=== PATIENT | male | born 1955 | race Caucasian/White ===

== ENCOUNTER 2019-02-13 17:06 | Emergency (ER) | payer OTHER ==
[2019-02-13] MEDS ORDERED: Cephalexin 500 MG Cap ONE (17:45)
--- NOTE | 2019-02-13 18:00 | EDM.PDOC ---
ED HPI GENERAL MEDICAL PROBLEM - General Chief Complaint: General Stated Complaint: NOT FEELING WELL Time Seen by Provider: 02/13/19 17:16 Source of Information: Reports: Patient History Limitations: Reports: No Limitations - History of Present Illness INITIAL COMMENTS - FREE TEXT/NARRATIVE: This is a 63yo M with recent history of an ear infection. He was started on augmentin. He has no medication allergies and has taken amoxicillin in the past. He started to feel bloated and have very loose stools up to 4-5 times a day within a day of taking the new antibiotics. He denies fever, chills or other concerns. He denies history of bowel issues, no cardiac or pulmonary issues, no chest pain, no sob. He states he is overall healthy just feels not well with the loose stools as his only symptom. Onset: Gradual Duration: Day(s): Location: Reports: Abdomen Severity: Mild Improves with: Reports: None Worsens with: Reports: None Associated Symptoms: Reports: Loss of Appetite, Nausea/Vomiting - Related Data Allergies Allergy/AdvReac Type Severity Reaction Status Date / Time adhesive tape Allergy Other Verified 02/13/19 17:28 Home Meds: Home Meds Albuterol [Ventolin HFA] 1 puff .XX ASDIRECTED 02/13/19 [History] Lisinopril 10 mg PO DAILY 02/13/19 [History] atorvaSTATin [Lipitor] 40 mg PO BEDTIME 02/13/19 [History] ED ROS GENERAL - Review of Systems Review Of Systems: ROS reveals no pertinent complaints other than HPI. ED EXAM, GENERAL - Physical Exam Exam: See Below Exam Limited By: No Limitations General Appearance: Alert, WD/WN, No Apparent Distress Eye Exam: Bilateral Eye: EOMI, PERRL Ears: Normal External Exam Ear Exam: Bilateral Ear: Other (cerumen in both canals blocking TM) Nose: Normal Inspection Throat/Mouth: Normal Inspection, Normal Lips, Normal Oropharynx Head: Atraumatic, Normocephalic Neck: Normal Inspection, Supple, Non-Tender Respiratory/Chest: No Respiratory Distress, Lungs Clear, Normal Breath Sounds Cardiovascular: Normal Peripheral Pulses, Regular Rate, Rhythm, No Edema Peripheral Pulses: 2+: Dorsalis Pedis (L), Dorsalis Pedis (R) GI/Abdominal: Soft, Non-Tender, Abnormal Bowel Sounds (hyperactive all over), Other (gassy) Back Exam: Normal Inspection Extremities: Normal Inspection Neurological: Alert, Oriented, CN II-XII Intact Psychiatric: Normal Affect, Normal Mood Skin Exam: Warm, Dry, Intact Course - Vital Signs Last Recorded V/S: Last Vital Signs Temp 36.8 C 02/13/19 17:16 Pulse 84 02/13/19 17:16 Resp 16 02/13/19 17:16 BP 147/107 H 02/13/19 17:33 Pulse Ox 97 02/13/19 17:16 - Orders/Labs/Meds Labs: Laboratory Tests 02/13/19 02/13/19 Range/Units 17:30 17:30 WBC 8.8 (4.0-11.0) K/uL RBC 4.95 (4.50-6.50) M/uL Hgb 14.7 (13.0-18.0) g/dL Hct 44.0 (40.0-54.0) % MCV 89 (76-96) fL MCH 29.7 (27.0-32.0) pg MCHC 33.4 (31.0-35.0) g/dL RDW 14.5 (11.0-16.0) % Plt Count 225 (150-400) K/uL MPV 9.2 (6.0-10.0) fL Neut % (Auto) 76.3 H (45.0-70.0) % Lymph % (Auto) 14.0 L (20.0-40.0) % Payne % (Auto) 8.0 (3.0-10.0) % Eos % (Auto) 1.5 (1.0-5.0) % Baso % (Auto) 0.2 (0.0-0.5) % Neut # (Auto) 6.71 (2.00-7.50) K/uL Lymph # (Auto) 1.23 L (1.50-4.00) K/uL Payne # (Auto) 0.70 (0.20-0.80) K/uL Eos # (Auto) 0.13 (0.04-0.40) K/uL Baso # (Auto) 0.02 (0.02-0.10) K/uL Sodium 142 (136-145) mmol/L Potassium 3.9 (3.5-5.1) mmol/L Chloride 106 (98-107) mmol/L Carbon Dioxide 29.1 (21.0-32.0) mmol/L Anion Gap 10.8 (5.0-15.0) mmol/L BUN 15 (8-26) mg/dL Creatinine 1.07 (0.70-1.30) mg/dL Est Cr Clr Drug Dosing 76.55 mL/min Estimated GFR (MDRD) > 60 (>60) MLS/MIN BUN/Creatinine Ratio 14.0 (6-25) Glucose 112 H (74-100) mg/dL Calcium 8.8 (8.5-10.1) mg/dL Departure - Departure Time of Disposition: 18:00 Disposition: Home, Self-Care 01 Condition: Good Clinical Impression: Medication side effects Frequent loose stools Qualifiers: Diarrhea type: unspecified type Qualified Code(s): R19.7 - Diarrhea, unspecified - Discharge Information Instructions: Cephalexin tablets or capsules, Probiotics, [place] Diet Forms: ED Department Discharge Additional Instructions: Take a probiotic daily while on the antibiotic. Eat foods that are easily digested to help settle the gut. Be sure to take the antibiotic until the medication is gone and take with medication with food. - Problem List & Annotations (1) Frequent loose stools SNOMED Code(s): 66570764 Code(s): R19.7 - DIARRHEA, UNSPECIFIED Status: Acute Priority: High Qualifiers: Diarrhea type: unspecified type Qualified Code(s): R19.7 - Diarrhea, unspecified (2) Medication side effects SNOMED Code(s): 535529128 Code(s): T88.7XXA - UNSP ADVERSE EFFECT OF DRUG OR MEDICAMENT, INIT ENCNTR Status: Acute Priority: High - Problem List Review Problem List Initiated/Reviewed/Updated: Yes - Assessment/Plan Plan: Counseled on supportive and conservative management. Discussed hydration, probiotics and use of antibiotics and side effects. Patient to f/u with PCP as directed. Rtc or ER as needed for further or persistent/worsening symptoms.
== END 2019-02-13 17:57 | disposition home or self-care (01) ==
LOC: LB.ED 17:06
DX: R19.7 Diarrhea, unspecified (principal); T36.0X5A Adverse effect of penicillins, initial encounter; Z79.899 Other long term (current) drug therapy
CPT/HCPCS: 36415; 80048; 85025; 99282; A9270